=== PATIENT | female | born 1965 | race Two or more races ===

== ENCOUNTER 2023-01-21 08:07 | Emergency (ER) | payer OTHER ==
[~2023-01-21] VITALS: Ht 160 cm; Wt 84.8 kg
[2023-01-21] MEDS ORDERED: GLUMETZA500 MG PO (08:29)
[2023-01-21] MEDS ORDERED: ZESTRIL10 M1 PO (08:29)
== END 2023-01-21 11:10 | disposition home or self-care (01) ==
LOC: ER 08:07
DX: J20.9 Acute bronchitis, unspecified (principal); R05.9 Cough, unspecified; I10 Essential (primary) hypertension; E11.9 Type 2 diabetes mellitus without complications; Z79.84 Long term (current) use of oral hypoglycemic drugs